=== PATIENT | male | born 2000 | race Caucasian/White ===

== ENCOUNTER 2022-09-21 18:54 | Emergency (ER) | payer OTHER ==
[2022-09-21 19:30] VITALS: TEMP 98.2
[2022-09-21] MEDS ORDERED: ACETAMINOPHEN TAB 325 MG TAB PO STA (19:36)
[2022-09-21] MEDS ORDERED: IBUPROFEN 600 MG TAB PO STA (19:36)
--- NOTE | 2022-09-21 19:40 | ED ---
Upper Extremity HPI - General Chief Complaint: Extremity Injury, Upper Stated Complaint: Hand Injury Time Seen by Provider: 09/21/22 19:33 Source: patient, RN notes reviewed, old records reviewed Mode of arrival: ambulatory Limitations: no limitations - History of Present Illness Initial Comments: This is a well 22-year-old well-appearing male that presents ambulatory with complaints of right hand pain after punching a wall 30 minutes prior to arrival. Patient denies any other injury. There is a small abrasion to his hand. Denies any medical history. Tetanus shot is up-to-date. MD Complaint: Injury to:: right, wrist, hand -: minutes(s) (30) Other Injuries: none Handedness: right Severity scale (1-10): 4 Improves With: immobilization Worsens With: movement of extremity Context: other (Punched a wall) Associated Symptoms: denies other symptoms Treatments Prior to Arrival: cold therapy - Related Data Allergies Allergy/AdvReac Type Severity Reaction Status Date / Time No Known Allergies Allergy Verified 09/21/22 19:30 Review of Systems ROS Statement: Those systems with pertinent positive or pertinent negative responses have been documented in the HPI. ROS Other: All systems not noted in ROS Statement are negative. Past Medical History Past Medical History: No Reported History History of Any Multi-Drug Resistant Organisms: None Reported Past Surgical History: No Surgical Hx Reported Past Psychological History: No Psychological Hx Reported Smoking Status: Vaper Past Alcohol Use History: Occasional Past Drug Use History: None Reported General Exam Limitations: no limitations General appearance: alert, in no apparent distress Head exam: Present: atraumatic Eye exam: Absent: scleral icterus, conjunctival injection, periorbital swelling Respiratory exam: Absent: respiratory distress Cardiovascular Exam: Present: regular rate Right Elbow exam: Present: full ROM. Absent: tenderness Forearm Wrist exam: Present: full ROM, tenderness. Absent: swelling, abrasion, laceration, ecchymosis, crepitus, erythema, pain with axial thumb loading Hand Wrist exam: Present: tenderness, swelling (Fourth and middle metacarpal), abrasion. Absent: laceration, ecchymosis, erythema, nail avulsion Neuro motor exam: Present: wrist extension intact, thumb opposition intact, thumb IP flexion intact, thumb adduction intact Neurosensory exam: Present: 2-point discrimination, radial nerve intact, ulnar nerve intact, median nerve intact Vascular: Present: normal capillary refill, radial pulse. Absent: vascular compromise Neurological exam: Present: alert, oriented X3, normal gait Psychiatric exam: Present: normal affect, normal mood Skin exam: Present: warm, dry, normal color. Absent: cyanosis, diaphoretic, petechiae, pallor Course Vital Signs 09/21/22 19:28 Temperature 98.2 F Pulse Rate 65 Respiratory 18 Rate Blood Pressure 129/79 O2 Sat by Pulse 98 Oximetry Medical Decision Making - Medical Decision Making X-ray of the right wrist and hand interpreted by me shows no evidence of acute fracture. Radiologist interpretation normal right wrist with no fracture. Negative right hand exam no fracture seen. On physical exam patient does have good range of motion. Sensation is intact. Minor abrasion noted webbing of 4th and 5th digits. Tetanus shot is up-to-date. Patient was given Tylenol and Motrin for pain and discomfort. Ice pack was applied. He was directed to rest ice and elevate. He was also given an Forest wrap and directed to follow up with his primary care doctor next week. Case discussed with Dr. Powell. Disposition Clinical Impression: Hand injury Disposition: HOME SELF-CARE Condition: Good Instructions (If sedation given, give patient instructions): Hand Sprain (ED) Additional Instructions: Rest, ice, Forest wrap for compression, and elevate to decrease swelling. Tylenol and or Motrin as needed for pain. Follow-up with your primary care doctor next week as needed. Is patient prescribed a controlled substance at d/c from ED?: No Referrals: None,Stated [Primary Care Provider] - 1-2 days Time of Disposition: 20:10
--- NOTE | 2022-09-21 19:59 | XR ---
EXAMINATION TYPE: XR hand complete RT DATE OF EXAM: 09/21/2022 COMPARISON: NONE HISTORY: Punched a wall TECHNIQUE: 3 views FINDINGS: The metacarpals are intact. Fingers are intact. I see no fracture nor dislocation. Joint sp aces are normal. IMPRESSION: Negative right hand exam. No fracture seen.
--- NOTE | 2022-09-21 20:00 | XR ---
EXAMINATION TYPE: XR wrist complete RT DATE OF EXAM: 09/21/2022 COMPARISON: NONE HISTORY: Pain TECHNIQUE: 4 views FINDINGS: The carpal bones are intact. Joint spaces are normal. Radiocarpal joint appears normal. IMPRESSION: Normal right wrist exam. No fracture.
[2022-09-21 20:26] VITALS: BP 126/72; PULSE 88; RESP 16
== END 2022-09-21 20:25 | disposition home or self-care (01) ==
LOC: EC 18:54
DX: S69.91XA Unspecified injury of right wrist, hand and finger(s), initial encounter (principal); F17.290 Nicotine dependence, other tobacco product, uncomplicated; W22.8XXA Striking against or struck by other objects, initial encounter
CPT/HCPCS: 99283

== ENCOUNTER 2022-09-27 18:42 | Emergency (ER) | payer OTHER ==
[2022-09-27 19:06] VITALS: BP 131/86; PULSE 90; RESP 16; TEMP 98
--- NOTE | 2022-09-27 20:32 | XR ---
PROCEDURE: XR hand complete RT - 3V DATE AND TIME: 09/27/2022 7:15 PM CLINICAL INDICATION: [facility]; right hand injury punching wall TECHNIQUE: Department protocol COMPARISON: 09/21/2022 FINDINGS: There is no fracture or malalignment. The soft tissues are unremarkable. IMPRESSION: NO ACUTE PROCESS.
--- NOTE | 2022-09-27 20:51 | ED ---
Upper Extremity HPI - General Chief Complaint: Extremity Injury, Upper Stated Complaint: rt hand injury - sx not improving Time Seen by Provider: 09/27/22 19:08 Source: patient, family, RN notes reviewed Mode of arrival: ambulatory Limitations: no limitations - History of Present Illness Initial Comments: This is a 22-year-old male who presents to the emergency department for right hand pain. He was evaluated here on 09/21 after punching a wall. X-rays at that time did not reveal any acute fractures. Patient states that the pain has since persisted and he wanted to make sure that there were not any fractures that could not be seen on the prior x-rays. He did have an increase in bruising and swelling after the event, but states that it has now started to subside. He has been keeping the hand wrapped, which he states is helpful. He is also alternating with ibuprofen and Tylenol, which seems to be helping the pain to some extent. He is no longer icing the hand. Denies any fevers, chills, sore throat, cough, dyspnea, chest pain, palpitations, abdominal pain, nausea, vomiting, diarrhea, back pain, or headaches. MD Complaint: Injury to:: right, hand Onset/Timin -: days(s) Context: direct blow Treatments Prior to Arrival: NSAIDS - Related Data Previous Rx's Medication Instructions Recorded predniSONE 50 mg PO DAILY 5 Days #5 tablet 09/27/22 Allergies Allergy/AdvReac Type Severity Reaction Status Date / Time No Known Allergies Allergy Verified 09/21/22 19:30 Review of Systems ROS Statement: Those systems with pertinent positive or pertinent negative responses have been documented in the HPI. ROS Other: All systems not noted in ROS Statement are negative. Past Medical History Past Medical History: No Reported History History of Any Multi-Drug Resistant Organisms: None Reported Past Surgical History: No Surgical Hx Reported Past Psychological History: No Psychological Hx Reported Smoking Status: Vaper Past Alcohol Use History: Occasional Past Drug Use History: None Reported General Exam Limitations: no limitations General appearance: alert, in no apparent distress Head exam: Present: atraumatic, normocephalic, normal inspection Respiratory exam: Present: normal lung sounds bilaterally. Absent: respiratory distress, wheezes, rales, rhonchi, stridor Cardiovascular Exam: Present: regular rate, normal rhythm, normal heart sounds. Absent: systolic murmur, diastolic murmur, rubs, gallop, clicks Extremities exam: Present: other (Mild ecchymosis, tenderness, and swelling to the dorsal aspect of the right hand. 2+ radial pulses, capillary refill less than 1 second, full active and passive range of motion of the wrist and all 5 digits.) Neurological exam: Present: alert, oriented X3, CN II-XII intact Psychiatric exam: Present: normal affect, normal mood Skin exam: Present: warm, dry, intact, normal color. Absent: rash Course Vital Signs 09/27/22 19:04 Temperature 98 F Pulse Rate 90 Respiratory 16 Rate Blood Pressure 131/86 O2 Sat by Pulse 97 Oximetry Medical Decision Making - Medical Decision Making This is a 22-year-old male who presents to the emergency department for right wrist and hand pain. Repeat x-rays of the hand and wrist were obtained, and on my interpretation there are no fractures or dislocations evident. Patient's wrist was wrapped with an Forest bandage for additional support. Advised he try continuing to ice the hand for 10-15 minutes every 2-3 hours or apply heat, whichever he finds beneficial. Prescription for 5 day course of prednisone provided to provide additional help with the persistent swelling and inflammation. Advised he continue to take Tylenol with this. Return precautions reviewed in depth, the patient is instructed to return to the emergency department with any new, worsening, or concerning symptoms. Patient verbalized understanding. This case was discussed in detail with the attending ED physician. Presentation, findings, and treatment plan discussed in detail as well. - Radiology Data Radiology results: report reviewed, image reviewed Disposition Clinical Impression: Sprain of right hand Disposition: HOME SELF-CARE Instructions (If sedation given, give patient instructions): Hand Sprain (ED) Additional Instructions: Return to the emergency department with any new, worsening, or concerning symptoms. Take the prednisone daily for 5 days along with Tylenol. You can continue wrapping the hand for additional relief as well as applying ice for 10- 15 minutes every 2-3 hours. If the ice is not beneficial, you can instead try applying heat. Follow up with your primary care provider in 1-2 days. Prescriptions: predniSONE 50 mg PO DAILY 5 Days #5 tablet Is patient prescribed a controlled substance at d/c from ED?: No Referrals: None,Stated [Primary Care Provider] - 1-2 days
== END 2022-09-27 21:24 | disposition home or self-care (01) ==
LOC: EC 18:42
DX: S63.91XA Sprain of unspecified part of right wrist and hand, initial encounter (principal); F17.290 Nicotine dependence, other tobacco product, uncomplicated; W22.01XA Walked into wall, initial encounter
CPT/HCPCS: 99282